=== PATIENT | male | born 2000 | race Caucasian/White ===

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

== ENCOUNTER 2022-03-21 23:32 | Emergency (ER) | payer OTHER ==
[2022-03-22] MEDS ORDERED: PREDNISONE 20 M20 MG PO (02:16)
== END 2022-03-22 02:30 | disposition home or self-care (01) ==
LOC: ER1 23:32
DX: T78.40XA Allergy, unspecified, initial encounter (principal); Z20.822 Contact with and (suspected) exposure to COVID-19; F17.290 Nicotine dependence, other tobacco product, uncomplicated; X58.XXXA Exposure to other specified factors, initial encounter
CPT/HCPCS: 96374; 96375; 99282; J1200; J2930

== ENCOUNTER 2022-07-14 19:42 | Emergency (ER) | payer OTHER ==
[~2022-07-14 19:42] MED LIST changes: +PREDNISONE 20 M20 MG PO
[2022-07-14 20:52] LABS: HEMOGLOBIN 15.4 gm/dl (14.0-17.5); RED BLOOD COUNT 5.14 M/UL (4.20-5.50); WHITE BLOOD COUNT 8.4 K/UL (4.5-11.0)
[2022-07-14 21:28] LABS: BUN/CREATININE RATIO 15 (0-10)
[2022-07-15] MEDS ORDERED: ONDANSETRON ODT4 MG PO ×2 (02:00→02:05)
[2022-07-15] MEDS ORDERED: METRONIDAZOLE500 MG PO (02:07)
== END 2022-07-15 02:08 | disposition home or self-care (01) ==
LOC: ER1 19:42
PROVIDERS: Family Medicine
DX: K52.9 Noninfective gastroenteritis and colitis, unspecified (principal); F17.290 Nicotine dependence, other tobacco product, uncomplicated; Z88.0 Allergy status to penicillin
CPT/HCPCS: 80053; 81001; 83690; 85025; 96374; 96375; 99284; J1885; J2405; Q9967

== ENCOUNTER 2022-07-17 11:59 | Emergency (ER) | payer OTHER ==
[~2022-07-17 11:59] MED LIST changes: +METRONIDAZOLE500 MG PO; +ONDANSETRON ODT4 MG PO
[2022-07-17 13:41] LABS: HEMOGLOBIN 15.2 gm/dl (14.0-17.5); RED BLOOD COUNT 5.07 M/UL (4.20-5.50)
[2022-07-17 13:42] LABS: WHITE BLOOD COUNT 6.2 K/UL (4.5-11.0)
[2022-07-17 13:56] LABS: BUN/CREATININE RATIO 10 (0-10)
[2022-07-17] MEDS ORDERED: REGLAN5 MG PO (20:35)
== END 2022-07-17 21:00 | disposition home or self-care (01) ==
LOC: ER1 11:59
PROVIDERS: Physician Assistant
DX: A08.4 Viral intestinal infection, unspecified (principal); F17.200 Nicotine dependence, unspecified, uncomplicated
CPT/HCPCS: 80053; 81001; 83690; 85025; 96361; 96374; 99284; J2765